=== PATIENT | female | born 1985 | race Caucasian/White ===

== ENCOUNTER → 2022-11-28 11:03 | Outpatient (BNVA) | payer OTHER, SELFPAY | PROVIDERS: Visit Provider Podiatrist Foot & Ankle Surgery | DX: M67.472 Ganglion, left ankle and foot | CPT/HCPCS: 73630; 99203 ==

== ENCOUNTER → 2023-04-25 08:02 | Outpatient (BNVA) | payer OTHER, SELFPAY | PROVIDERS: Visit Provider Nurse Practitioner Women's Health | DX: N92.6 Irregular menstruation, unspecified (principal); N89.8 Other specified noninflammatory disorders of vagina | CPT/HCPCS: 81025 ==

== ENCOUNTER → 2023-05-05 15:31 | Outpatient (BNVA) | payer OTHER, SELFPAY | PROVIDERS: Visit Provider Nurse Practitioner Women's Health | DX: Z36.87 Encounter for antenatal screening for uncertain dates (principal) | CPT/HCPCS: 76817 ==

== ENCOUNTER → 2023-05-09 07:56 | Outpatient (BNVA) | payer OTHER, SELFPAY | PROVIDERS: Visit Provider Nurse Practitioner Women's Health | DX: Z34.90 Encounter for supervision of normal pregnancy, unspecified, unspecified trimester (principal) | CPT/HCPCS: 81000 ==

== ENCOUNTER → 2023-05-16 13:22 | Outpatient (BNVA) | payer OTHER, SELFPAY | PROVIDERS: Visit Provider Obstetrics & Gynecology | DX: Z34.80 Encounter for supervision of other normal pregnancy, unspecified trimester (principal) | CPT/HCPCS: 80307; 81000; 85025; 86592; 86762; 86803; 86850; 86900; 87086; 87340; 87491; 87591; 87806 ==

== ENCOUNTER 2023-05-28 11:56 | Emergency (ER) | payer OTHER, SELFPAY ==
[2023-05-28 12:01] VITALS: BP 142/80; PULSE 94; RESP 18; TEMP 37.1; O2SAT 99
--- NOTE | 2023-05-28 12:41 | W.ED.PREGNAN ---
HPI - General: Chief complaint: Vaginal Bleeding Stated complaint: vaginal bleeding , 11 weeks preg Time Seen by Provider: 05/28/23 12:26 Source: patient Mode of arrival: ambulatory History of Present Illness: 37-year-old female presents emergency room patient is elective abortions 1 spontaneous miscarriage. Current is at approximately 12 weeks confirmed intrauterine by first trimester ultrasound. She presents with complaints of vaginal bleeding very light spotting intermittently denies dysuria urgency or frequency no nausea or vomiting. Blood typing done earlier this month was a positive was done via the outpatient obstetrical clinic for labs Complaint: vaginal bleeding Onset (ago): day(s) (3) Pain Consistency: constant Severity: mild Quality: Cramping Radiation: pelvis Relieving factors: none Exacerbating factors: none Vaginal bleeding: light Date of Last Menstrual Period: 03/06/23 Patient : Yes Associated symptoms: Reports vaginal bleeding; Deny abdominal pain, dyspareunia, dysuria, headache(s), malaise, nausea, rash, seizures, short of breath, syncope, vaginal discharge, visual changes, vomiting or weakness Related Data: : 4 Para: 0 Total number of abortions (spontaneous and elective): 3 Review of Systems Const: Denies: malaise Card: Denies: syncope Resp: Denies: dyspnea GI: Denies: abdominal pain, nausea or vomiting : Reports: vaginal bleeding; Denies: dysuria, vaginal discharge or dyspareunia Musc: Denies: neck pain or back pain Skin/Breast: Denies: rash Neuro: Denies: headache(s) PFS ED PFSH: Medical History No pertinent past medical history neghx: htn,dm,thyroid,dvt/pe PCP: None Surgical History H/O knee surgery Family History Grandfather Hyperlipidemia Hypertension Denies family history of Colon cancer Ovarian cancer Prostate cancer Diabetes Heart disease Breast cancer Uterine cancer Thyroid disease Stroke Female Reproductive History: Date of last menstrual period: 03/06/23 : 4 Physical Exam Const: COMMON NORMALS: no acute distress GENERAL APPEARANCE: cooperative and comfortable ORIENTATION/CONSCIOUSNESS: Yes awake, Yes oriented to person, Yes oriented to place and Yes oriented to time HENMT: COMMON NORMALS: normocephalic, atraumatic and hearing grossly normal bilaterally HEAD & SCALP: normocephalic and atraumatic Resp: COMMON NORMALS: normal respiratory effort, No retractions, No use of accessory muscles and clear to auscultation bilaterally AUSCULTATION: clear to auscultation bilaterally Cardio: COMMON NORMALS: regular rate, regular rhythm and No murmurs present (Cardio) RATE: regular rate RHYTHM: regular rhythm GI: COMMON NORMALS: Soft to palpation and No hepatosplenomegaly present AUSCULTATION: Yes normoactive bowel sounds PALPATION: Yes Soft to palpation, No Tenderness to palpation present (GI), No Guarding due to palpation present (GI) and Yes No hepatosplenomegaly present : SPECULUM EXAM - VAGINA: Yes vaginal bleeding OB/EXTERNAL & SPECULUM: vaginal bleeding Extremity: COMMON NORMALS: normal to inspection, capillary refill normal, no clubbing, cyanosis or edema, no calf tenderness and no pedal edema Neuro: SENSORIUM/ORIENTATION: Yes oriented to person, Yes oriented to place and Yes oriented to time Skin: COMMON NORMALS: no rashes or lesions noted GENERAL SKIN EXAM: no rashes or lesions noted Course Vital Signs: Vital signs: Vital Signs Temperature 98.7 F 05/28/23 12:01 Pulse Rate 91 05/28/23 14:35 Respiratory Rate 18 05/28/23 14:35 Blood Pressure 104/69 05/28/23 14:35 Pulse Oximetry 99 05/28/23 14:35 Oxygen Delivery Me thod Room Air 05/28/23 14:35 MDM - OB/Uterine Contractions Medical Decision Making Spontaneous miscarriage no activity or cardiac cavity noted on ultrasound. Beta-hCG is significantly decreased from will be expected for reported gestational age. Discussed with patient and her significant other. Discharge home return precautions given for heavy bleeding. Advised patient she may have significant abdominal cramping can use ibuprofen as needed. She has an appointment on Friday with her OB doctor should keep that appointment for further follow-up for hemoglobin beta-hCGs and discussion of monitoring as miscarriage completes. Medical Records I reviewed the patient's medical records. Lab Data I reviewed the patient's lab results. 05/28/23 12:59 05/28/23 12:59 Laboratory Results WBC 12.27 10^3/uL (3.29-11.43) H 05/28/23 12:59 RBC 4.36 10^6/uL (3.85-5.65) 05/28/23 12:59 Hgb 12.70 g/dL (11.27-16.99) 05/28/23 12:59 Hct 37.8 % (36-47) 05/28/23 12:59 MCV 86.7 fl (85-98) 05/28/23 12:59 MCH 29.1 pg (27-33) 05/28/23 12:59 MCHC 33.6 g/dL (30-55) 05/28/23 12:59 RDW 12.5 % (12.1-15.1) 05/28/23 12:59 Plt Count 321 10^3/cmm (157-399) 05/28/23 12:59 MPV 9.5 fL (7.4-10.4) 05/28/23 12:59 Neut % (Auto) 68.1 % 05/28/23 12:59 Lymph % (Auto) 25.5 % 05/28/23 12:59 [place] % (Auto) 5.1 % 05/28/23 12:59 Eos % (Auto) 0.7 % 05/28/23 12:59 Baso % (Auto) 0.4 % 05/28/23 12:59 Neut # (Auto) 8.35 10^3/uL (1.8-7.7) H 05/28/23 12:59 Lymph # (Auto) 3.1 10^3/uL (0.8-4.8) 05/28/23 12:59 [place] # (Auto) 0.6 10^3/uL (0.2-0.9) 05/28/23 12:59 Eos # (Auto) 0.1 10^3/uL (0.0-0.8) 05/28/23 12:59 Baso # (Auto) 0.1 10^3/uL (0.0-0.1) 05/28/23 12:59 Nucleated RBC % (auto) 0 % 05/28/23 12:59 Nucleated RBCs # 0.0 /100WBC 05/28/23 12:59 Sodium 137 mmol/L (136-145) 05/28/23 12:59 Potassium 3.7 mmol/L (3.5-5.1) 05/28/23 12:59 Chloride 104 mmol/L (98-107) 05/28/23 12:59 Carbon Dioxide 20 mmol/L (22-29) L 05/28/23 12:59 Anion Gap 16.7 (5-19) 05/28/23 12:59 BUN 8 mg/dL (6-20) 05/28/23 12:59 Creatinine 0.5 mg/dL (0.5-0.9) 05/28/23 12:59 GFR Calculation 138.1 mL/min (90-130) H 05/28/23 12:59 Glucose 93 mg/dL (65-115) 05/28/23 12:59 Calculated Osmolality 282 mOsm/kg (285-295) L 05/28/23 12:59 Calcium 9.8 mg/dL (8.5-10.5) 05/28/23 12:59 Total Bilirubin 0.3 mg/dL (0.15-1.2) 05/28/23 12:59 AST 18 U/L (0-32) 05/28/23 12:59 ALT 17 U/L (0-33) 05/28/23 12:59 Alkaline Phosphatase 73 U/L (35-105) 05/28/23 12:59 Total Protein 7.1 g/dL (6.6-8.7) 05/28/23 12:59 Albumin 4.1 g/dL (3.5-5.2) 05/28/23 12:59 Globulin 3.0 g/dL (1.3-4.6) 05/28/23 12:59 Ser , Semi-Qnt 5249.00 mIU/mL 05/28/23 12:59 Urine Color Light yellow (Yellow) 05/28/23 12:20 Urine Appearance Clear (CLEAR) 05/28/23 12:20 Urine pH 7 (5-7) 05/28/23 12:20 Ur Specific [place] 1.010 (1.005-1.030) 05/28/23 12:20 Urine Protein Neg (Negative) 05/28/23 12:20 Urine Glucose (UA) Norm (Normal) 05/28/23 12:20 Urine Ketones Negative (Negative) 05/28/23 12:20 Urine Blood Neg (Negative) 05/28/23 12:20 Urine Nitrate Negative (Negative) 05/28/23 12:20 Urine Bilirubin Neg (Negative) 05/28/23 12:20 Urine Urobilinogen Norm mg/dL (Negative) 05/28/23 12:20 Ur Leukocyte Esterase Negative (Negative) 05/28/23 12:20 All radiology interpretation(s) finalized by discharge Discharge Plan Discharge Patient Disposition: Home Clinical Impression: Spontaneous miscarriage Condition: Stable Prescriptions: No Action perelel 1 pkg PO DAILY Discharge Orders: Discharge ED (Routine); Ordered 05/28/23 Ordered By: Ja Cesar Discharge Diet: Usual diet Discharge Activity: Resume usual activity Patient Instructions: Opioid Safety, Pain Management Activity Restrictions/Additional Instructions: Thank you for choosing [facility] for your healthcare needs today. Please realize this is an emergency room and that we are providing you with a medical screening exam and this may not be complete and all inclusive of all the testing and or work up that you may need to determine your ailment or severity of your illness. It is very important that you follow up as instructed or that you return to the Emergency Department should you have concerns or if your condition changes or worsens in any way. Recommend that you follow-up with your plastics spreading machine operator as scheduled this week to discuss care for the miscarriage. If your bleeding becomes heavy you get lightheaded or dizzy return to the emergency room. Coding Level of Care Code ED Chief Deputy Sheriff for Cande Moyer
[2023-05-28 12:59] VITALS: BP 127/79; PULSE 83; RESP 18; O2SAT 99
[2023-05-28 13:11] LABS: Basophils # 0.1 10^3/uL (0.0-0.1); Basophils % 0.4 %; Eosinophils # 0.1 10^3/uL (0.0-0.8); Eosinophils % 0.7 %; Hematocrit 37.8 % (36-47); Lymphocytes # 3.1 10^3/uL (0.8-4.8); Lymphocytes % 25.5 %; Mean Corpuscular HGB Conc 33.6 g/dL (30-55); Mean Corpuscular Hemoglobin 29.1 pg (27-33); Mean Corpuscular Volume 86.7 fl (85-98); Mean Platelet Volume 9.5 fL (7.4-10.4); Monocytes # 0.6 10^3/uL (0.2-0.9); Monocytes % 5.1 %; Neutrophils # 8.35 10^3/uL (1.8-7.7); Neutrophils % 68.1 %; Nucleated Red Blood Cells % 0 %; Platelet Count 321 10^3/cmm (157-399); Red Blood Count 4.36 10^6/uL (3.85-5.65); Red Cell Distribution Width 12.5 % (12.1-15.1); White Blood Count 12.27 10^3/uL (3.29-11.43)
[2023-05-28 13:27] LABS: Add Urine Microscopic? NO; Charge for UA Resulting for Rev
[2023-05-28 13:37] LABS: Bilirubin Urine Neg (Negative); Blood Urine Neg (Negative); Glucose Urine UA Norm (Normal); Ketones Urine Negative (Negative); Leukocyte Esterase Urine Negative (Negative); Nitrate Urine Negative (Negative); Protein Urine Neg (Negative); Urine Appearance Clear (CLEAR); Urine Color Light yellow (Yellow); Urobilinogen Urine Norm (Negative); pH Urine 7 (5-7)
[2023-05-28 13:54] VITALS: BP 142/82; PULSE 89; RESP 18; O2SAT 98
--- NOTE | 2023-05-28 13:54 | US_ITS ---
WS: [id number] Transvaginal pelvic ultrasound, less than 14 weeks. COMPARISON: 05/05/2023. Single intrauterine gestation is identified. Gestational sac is irregular. There is a crown-rump christal th present measuring 1.8 cm which corresponds to a gestation of 8 weeks and 2 days. No cardiac activi ty or movement was identified. There has been minimal increase in size of the crown-rump length since the prior ultrasound of 05/05/2023. age at that time was estimated at 8 weeks and 5 days. Cervix is closed. No free fluid in the adnexa. IMPRESSION: Embryonic demise. No activity was identified. Minimal increase in size of the crown-rump length since 05/05/2023.
[2023-05-28 13:59] LABS: Alanine Aminotransferase 17 U/L (0-33); Albumin Level 4.1 g/dL (3.5-5.2); Alkaline Phosphatase 73 U/L (35-105); Anion Gap 16.7 (5-19); Aspartate Amino Transferase 18 U/L (0-32); Blood Urea Nitrogen 8 mg/dL (6-20); Calcium 9.8 mg/dL (8.5-10.5); Carbon Dioxide 20 mmol/L (22-29); Chloride 104 mmol/L (98-107); Creatinine Clr Calc Pharmacy 167.6653; Glomerular Filtration Rate 138.1 mL/min (90-130); Glucose 93 mg/dL (65-115); Osmolality Calculated 282 mOsm/kg (285-295); Potassium 3.7 mmol/L (3.5-5.1); Sodium 137 mmol/L (136-145); Total Bilirubin 0.3 mg/dL (0.15-1.2); Total Protein 7.1 g/dL (6.6-8.7)
[2023-05-28 14:35] VITALS: BP 104/69; PULSE 91; RESP 18; O2SAT 99
[2023-05-28 16:10] VITALS: PULSE 81; RESP 18; O2SAT 99
== END 2023-05-28 16:10 | disposition home or self-care (01) ==
PROVIDERS: Emergency Medicine; Emergency Provider Family Medicine
DX: O03.9 Complete or unspecified spontaneous abortion without complication (principal)
CPT/HCPCS: 76817; 80053; 81003; 84702; 85025; 99284

== ENCOUNTER 2023-05-29 20:55 | Emergency (ER) | payer OTHER, SELFPAY ==
[2023-05-29 20:56] VITALS: BP 112/73; PULSE 75; RESP 20; TEMP 36.9; O2SAT 100; BMI 28.1
--- NOTE | 2023-05-29 21:09 | ED_ITS ---
HPI - Abdominal Pain 2 General: Chief Complaint: Abdominal Pain Stated Complaint: abd pain - Miscarriage Time Seen by Provider: 05/29/23 20:56 Source: patient and EMS Mode of arrival: EMS Limitations: no limitations History of Present Illness: 37-year-old female who states that she h ad been diagnosed with demise yesterday she states that today she started having heavier bleeding and then started having extreme lower pelvic pain she states in the way an ambulance she had passed a large clot her pain has improved and is currently a 1 out of 10. She denies any vomiting Associated Symptoms: Denies chills, diarrhea, dysuria, fever(s), nausea and vomiting Review of Systems 2 Const: Denies: fever(s), chills, body aches or change in appetite ENMT: Denies: throat pain or dental pain Card: Denies: chest pain Resp: Denies: dyspnea GI: Reports: abdominal pain; Denies: nausea, vomiting or diarrhea : Reports: vaginal bleeding; Denies: dysuria Musc: Denies: neck pain or back pain Skin/Breast: Denies: rash Neuro: Denies: headache(s) PFSH ED 2 PFSH: Medical History No pertinent past medical history neghx: htn,dm,thyroid,dvt/pe PCP: None Surgical History H/O knee surgery Family History Grandfather Hyperlipidemia Hypertension Denies family history of Colon cancer Ovarian cancer Prostate cancer Diabetes Heart disease Breast cancer Uterine cancer Thyroid disease Stroke Physical Exam 2 Const: COMMON NORMALS: no acute distress, patient oriented x3 and healthy appearing HENMT: COMMON NORMALS: normocephalic and atraumatic HEAD & SCALP: n ormocephalic and atraumatic Eye: COMMON NORMALS: conjunctivae normal CONJUNCTIVA: Yes conjunctivae normal Neck/C-Spine: COMMON NORMALS: full ROM and supple Chest: COMMONS NORMALS: normal inspection of the chest Resp: COMMON NORMALS: normal respiratory effort Cardio: COMMON NORMALS: regular rate RATE: regular rate GI: COMMON NORMALS: Normal to inspection, nondistended, normoactive bowel sounds present, Soft to palpation, non-tender and no masses PALPATION: Yes Soft to palpation : OTHER: small amount of blood in vaginal vault no heavy bleeding Extremity: COMMON NORMALS: normal to inspection and full ROM Neuro: COMMON NORMALS: patient oriented x3, moves all extremities and no focal motor deficits Psych: COMMON NORMALS: mental status grossly normal, Normal thought process present and cooperative THOUGHT PROCESS: Normal thought process present Skin: COMMON NORMALS: no rashes or lesions noted and no wounds GENERAL SKIN EXAM: no rashes or lesions noted Course 2 Vital Signs: Vital signs: Vital Signs Temperature 98.4 F 05/29/23 20:56 Pulse Rate 75 05/29/23 20:56 Respiratory Rate 18 05/29/23 21:40 Blood Pressure 112/73 05/29/23 20:56 Pulse Oximetry 100 05/29/23 20:56 MDM - Abdominal Pain Medical Decision Making Patient presents for miscarriage she did have some slight blood on her pelvic exam no large amounts of bleeding hemoglobin stable vitals here been stable she stable for discharge follow-up with her INSTRUMENT REPAIR SUPERVISOR tomorrow as scheduled return if worsening. Medical Records I reviewed the patient's medical records. Lab Data I reviewed the patient's lab results. 05/29/23 21:49 Labs/Radiology: Laboratory Results WBC 14.42 10^3/uL (3.29-11.43) H 05/29/23 21:49 RBC 4.30 10^6/uL (3.85-5.65) 05/29/23 21:49 Hgb 12.60 g/dL (11.27-16.99) 05/29/23 21:49 Hct 36.1 % (36-47) 05/29/23 21:49 MCV 84.0 fl (85-98) L 05/29/23 21:49 MCH 29.3 pg (27-33) 05/29/23 21:49 MCHC 34.9 g/dL (30-55) 05/29/23 21:49 RDW 12.5 % (12.1-15.1) 05/29/23 21:49 Plt Count 328 10^3/cmm (157-399) 05/29/23 21:49 MPV 9.3 fL (7.4-10.4) 05/29/23 21:49 Neut % (Auto) 81.3 % 05/29/23 21:49 Lymph % (Auto) 14.4 % 05/29/23 21:49 [place] % (Auto) 3.5 % 05/29/23 21:49 Eos % (Auto) 0.3 % 05/29/23 21:49 Baso % (Auto) 0.2 % 05/29/23 21:49 Neut # (Auto) 11.72 10^3/uL (1.8-7.7) H 05/29/23 21:49 Lymph # (Auto) 2.1 10^3/uL (0.8-4.8) 05/29/23 21:49 [place] # (Auto) 0.5 10^3/uL (0.2-0.9) 05/29/23 21:49 Eos # (Auto) 0.0 10^3/uL (0.0-0.8) 05/29/23 21:49 Baso # (Auto) 0.0 10^3/uL (0.0-0.1) 05/29/23 21:49 Nucleated RBC % (auto) 0 % 05/29/23 21:49 Nucleated RBCs # 0.0 /100WBC 05/29/23 21:49 No radiology studies performed this visit Discharge Plan Discharge Patient Disposition: Home Clinical Impression: Miscarriage Condition: Stable Prescriptions: New hydrocodone-acetaminophen 5-325 mg tablet 1 tab PO Q6H PRN (Reason: pain) Qty: 14 0RF No Action perelel 1 pkg PO DAILY Discharge Orders: Discharge ED (Routine); Ordered 05/29/23 Ordered By: Medardo Tinajero Discharge Diet: Advance as tolerated Discharge Activity: Resume usual activity Patient Instructions: Miscarriage (ED) Coding Level of Care Code ED Cans Vacuum Tester for Cande Moyer
[2023-05-29 21:40] VITALS: RESP 18
[2023-05-29] MEDS: morphine 4 mg/mL SDV 1 mL IM (21:40)
[2023-05-29] MEDS: ondansetron 2 mg/ML SDV 2 mL 4 MG IM (21:41)
[2023-05-29 21:56] LABS: Basophils % 0.2 %; Eosinophils % 0.3 %; Hematocrit 36.1 % (36-47); Lymphocytes # 2.1 10^3/uL (0.8-4.8); Lymphocytes % 14.4 %; Mean Corpuscular HGB Conc 34.9 g/dL (30-55); Mean Corpuscular Hemoglobin 29.3 pg (27-33); Mean Platelet Volume 9.3 fL (7.4-10.4); Monocytes # 0.5 10^3/uL (0.2-0.9); Monocytes % 3.5 %; Neutrophils # 11.72 10^3/uL (1.8-7.7); Neutrophils % 81.3 %; Nucleated Red Blood Cells % 0 %; Platelet Count 328 10^3/cmm (157-399); Red Cell Distribution Width 12.5 % (12.1-15.1); White Blood Count 14.42 10^3/uL (3.29-11.43)
[2023-05-29] MEDS: miSOPROStol 200 mcg Tablet 800 MCG PR (22:03)
[2023-05-29] MEDS: HYDROcodone-acetaminophen 5-325 mg Tablet 1 TAB PO (22:16)
--- NOTE | 2023-05-29 22:20 | PC.NURSE ---
Given verbal order per Dr Tinajero to put in order for hydrocodone-acetaminophen 1 tab 5-325 ONCE for home. Patient given education to take in 6H as need for severe pain. Pill sent home with patient, signed behind by Felice Chris RN.
[2023-05-29 22:52] VITALS: PULSE 71; RESP 16; O2SAT 100
[2023-05-29 22:53] VITALS: PULSE 71; RESP 16; O2SAT 100
== END 2023-05-29 22:11 | disposition home or self-care (01) ==
PROVIDERS: Emergency Provider Emergency Medicine
DX: O03.9 Complete or unspecified spontaneous abortion without complication (principal)
CPT/HCPCS: 85025; 96372; 99284; J2270; J2405

== ENCOUNTER → 2023-06-05 14:26 | Outpatient (BNVA) | payer OTHER, SELFPAY | PROVIDERS: Visit Provider Obstetrics & Gynecology | DX: O03.9 Complete or unspecified spontaneous abortion without complication (principal) | CPT/HCPCS: 76830 ==

== ENCOUNTER → 2023-06-12 11:11 | Outpatient (BNVA) | payer OTHER, SELFPAY | PROVIDERS: Visit Provider Obstetrics & Gynecology | DX: Z34.80 Encounter for supervision of other normal pregnancy, unspecified trimester (principal) | CPT/HCPCS: 84702 ==

== ENCOUNTER → 2023-07-08 15:16 | Outpatient (BNVA) | payer OTHER, SELFPAY | PROVIDERS: Visit Provider Obstetrics & Gynecology | DX: Z34.80 Encounter for supervision of other normal pregnancy, unspecified trimester (principal) | CPT/HCPCS: 84702 ==

== ENCOUNTER → 2023-10-01 14:49 | Outpatient (BNVA) | payer OTHER, SELFPAY | PROVIDERS: Visit Provider Nurse Practitioner Family | DX: N92.6 Irregular menstruation, unspecified (principal) | CPT/HCPCS: 84702 ==

== ENCOUNTER → 2023-10-21 08:20 | Outpatient (BNVA) | payer OTHER, SELFPAY | PROVIDERS: Visit Provider Nurse Practitioner Women's Health | DX: O09.521 Supervision of elderly multigravida, first trimester (principal); O09.299 Supervision of pregnancy with other poor reproductive or obstetric history, unspecified trimester | CPT/HCPCS: 80307; 84315; 85025; 86592; 86762; 86803; 86850; 86900; 87086; 87340; 87624; 87806 ==

== ENCOUNTER → 2023-11-24 15:47 | Outpatient (BNVA) | payer BC, SELFPAY | PROVIDERS: Visit Provider Obstetrics & Gynecology | DX: Z34.80 Encounter for supervision of other normal pregnancy, unspecified trimester (principal) | CPT/HCPCS: 87491; 87591 ==